=== PATIENT | male | born 1950 | race African-American/Black ===

== ENCOUNTER 2018-01-13 02:02 | Emergency (ER) | payer OTHER, MEDICAID ==
[~2018-01-13] VITALS: Ht 172.7 cm; Wt 86.0 kg
[2018-01-13] MEDS ORDERED: SODIUM CHLORIDE 0.9% 1,000 ML IV ONE ×2 (02:33→03:17)
[2018-01-13] MEDS ORDERED: ONDANSETRON HCL 4MG/2ML INJ IV STA (02:33)
[2018-01-13 02:54] LABS: BASOPHILS % 0.3 % (0.0-2.0); EOSINOPHILS % 11.4 % (0.0-5.0); HEMATOCRIT. 32.3 % (42.0-52.0); HEMOGLOBIN. 10.9 g/dL (14.0-18.0); LYMPHOCYTES % 30.3 % (20.0-50.0); MEAN CORPUSCULAR HEMOGLOBIN 31.1 pg (28.0-32.0); MEAN CORPUSCULAR VOLUME 91.7 fL (80.0-94.0); MEAN PLATELET VOLUME 7.5 fl (7.4-10.4); MONOCYTES % 10.3 % (2.0-8.0); NEUTROPHILS % 47.7 % (40.0-76.0); PLATELET 196 x1000/uL (130-400); RED BLOOD CELL COUNT 3.52 mill/uL (4.7-6.1); RED CELL DISTRIBUTION WIDTH 13.7 % (11.6-14.6)
[2018-01-13 03:05] LABS: CHLORIDE 105 mEq/L (98-107)
[2018-01-13 03:17] LABS: CREATINE KINASE 723 IU/L (39-308); ETHANOL BLOOD 77 mg/dL
[2018-01-13 04:47] LABS: CLARITY URINE CLEAR (CLEAR); COLOR URINE YELLOW (YELLOW); KETONES URINE NEGATIVE (NEGATIVE); LEUKOCYTE ESTERASE URINE NEGATIVE (NEGATIVE); NITRITE URINE NEGATIVE (NEGATIVE); OCCULT BLOOD URINE NEGATIVE (NEGATIVE); PROTEIN URINE NEGATIVE (NEGATIVE); SPECIFIC GRAVITY URINE 1.008 (1.005-1.030)
[2018-01-13 05:20] LABS: *AMPHETAMINES SCREEN URINE NEGATIVE (NEGATIVE); *BARBITURATES SCREEN URINE NEGATIVE (NEGATIVE); *BENZODIAZEPINES SCREEN URINE NEGATIVE (NEGATIVE); *COCAINE SCREEN URINE PRESUMTIVE POSITIVE (NEGATIVE); METHADONE URINE SCREEN NEGATIVE (NEGATIVE)
[2018-01-13 05:21] LABS: CANNABINOID URINE SCREEN NEGATIVE (NEGATIVE); OPIATES URINE SCREEN NEGATIVE (NEGATIVE); PHENCYCLIDINE URINE SCREEN NEGATIVE (NEGATIVE)
[2018-01-13 11:04] VITALS: BP 138/77
== END 2018-01-13 12:31 | disposition home or self-care (01) ==
LOC: ER 03:33
DX: T51.0X1A Toxic effect of ethanol, accidental (unintentional), initial encounter (principal); T42.6X1A Poisoning by other antiepileptic and sedative-hypnotic drugs, accidental (unintentional), initial encounter; E11.9 Type 2 diabetes mellitus without complications; I10 Essential (primary) hypertension; G93.40 Encephalopathy, unspecified; M62.82 Rhabdomyolysis; N28.9 Disorder of kidney and ureter, unspecified; E86.0 Dehydration; Y92.89 Other specified places as the place of occurrence of the external cause
CPT/HCPCS: 36415; 70450; 71045; 80053; 80305; 80307; 80329; 81003; 82550; 84443; 85025; 93005; 96361; 96374; 99285; G0482; J2405; J7030

== ENCOUNTER 2018-02-17 15:04 | Inpatient (IN) | payer OTHER, MEDICAID ==
[~2018-02-17] VITALS: Ht 182.9 cm; Wt 101.2 kg
[2018-02-17] MEDS ORDERED: METHYLPREDNISOLONE SOD SUCC 125 MG/2 ML VIAL IV STA (15:17)
[2018-02-17] MEDS: ALBUTEROL (0.083%) 2.5MG/3ML NEB HHN SCH (15:17)
[2018-02-17] MEDS ORDERED: IPRATROPIUM BROMIDE (0.02%) 0.5MG/2.5ML NEB HHN STA (15:17)
[2018-02-17] MEDS ORDERED: MAGNESIUM 2 G PREMIX 50 ML IV ONE (15:30)
[2018-02-17 16:29] LABS: BASOPHILS % 0.1 % (0.0-2.0); EOSINOPHILS % 7.3 % (0.0-5.0); HEMATOCRIT. 37.3 % (42.0-52.0); HEMOGLOBIN. 12.4 g/dL (14.0-18.0); LYMPHOCYTES % 15.2 % (20.0-50.0); MEAN CORPUSCULAR HEMOGLOBIN 30.4 pg (28.0-32.0); MEAN CORPUSCULAR VOLUME 91.6 fL (80.0-94.0); MEAN PLATELET VOLUME 7.9 fl (7.4-10.4); MONOCYTES % 8.6 % (2.0-8.0); NEUTROPHILS % 68.8 % (40.0-76.0); PLATELET 238 x1000/uL (130-400); RED BLOOD CELL COUNT 4.07 mill/uL (4.7-6.1); RED CELL DISTRIBUTION WIDTH 13.2 % (11.6-14.6)
[2018-02-17 16:34] LABS: CHLORIDE 95 mEq/L (98-107); INR 0.9; PROTHROMBIN TIME 9.4 sec (9.1-11.1)
[2018-02-17 16:38] LABS: ETHANOL BLOOD < 10 mg/dL
[2018-02-17] MEDS ORDERED: CEFTRIAXONE 1 G PREMIX 50 ML IV NR (17:00)
[2018-02-17] MEDS ORDERED: AZITHROMYCIN 500 MG in DEXT 5% WATER 250 ML IV NR (17:00)
[2018-02-17] MEDS ORDERED: SODIUM CHLORIDE 0.9% 1000ML BAG (SEPSIS BOLUS) IV ONE (17:00)
[2018-02-17] MEDS ORDERED: SODIUM CHLORIDE 0.9% IV SCH (17:00)
[2018-02-17 17:16] LABS: BG BASE EXCESS -0.3 mmol/L (-2.0-2.0); BG BILEVEL POS AIRWAY PRESSURE 15/5; BG CARBOXYHEMOGLOBIN 0.7 % (0.5-1.5); BG DEOXYHEMOGLOBIN 0.4 % (0.0-5.0); BG FRACTION INSPIRED OXYGEN 50; BG HCO3 ACT 27.1 mmol/L (22.0-26.0); BG METHEMOGLOBIN 0.4 % (0.0-1.5); BG OXYGEN SATURATION 99.6 % (92.0-98.5); BG OXYHEMOGLOBIN 98.5 % (94.0-97.0); BG PCO2 56.4 mmHg (35.0-45.0); BG PO2 254.5 mmHg (75.0-100.0); BG SAMPLE SITE RIGHT RADIAL; BG TOTAL HEMOGLOBIN 13.3 g/dL (12.0-18.0); BG VENT MODE MASK - BIPAP
[2018-02-17] MEDS ORDERED: ENOXAPARIN 40MG/0.4ML SYR SUBCUT SCH (17:30)
[2018-02-17] MEDS ORDERED: MAGNESIUM/ALUMINUM HYDROXIDE/SIMETHICONE 30ML UDC PO PRN (17:30)
[2018-02-17] MEDS ORDERED: ONDANSETRON HCL 4MG/2ML INJ IV PRN (17:30)
[2018-02-17] MEDS ORDERED: HYDROCODONE/ACETAMINOPHEN 5/325MG TABLET PO PRN (17:30)
[2018-02-17] MEDS ORDERED: IPRATROPIUM/ALBUTEROL 0.5-3(2.5)MG/3ML NEB INH PRN (17:30)
[2018-02-17] MEDS ORDERED: ACETAMINOPHEN 325MG TABLET PO PRN (17:30)
[2018-02-17] MEDS ORDERED: DOCUSATE SODIUM 100MG CAPSULE PO PRN (17:30)
[2018-02-17 20:00] LABS: CLARITY URINE CLEAR (CLEAR); COLOR URINE YELLOW (YELLOW); KETONES URINE NEGATIVE (NEGATIVE); LEUKOCYTE ESTERASE URINE NEGATIVE (NEGATIVE); NITRITE URINE NEGATIVE (NEGATIVE); OCCULT BLOOD URINE NEGATIVE (NEGATIVE); PROTEIN URINE NEGATIVE (NEGATIVE); SPECIFIC GRAVITY URINE 1.007 (1.005-1.030); UROBILINOGEN URINE 0.2 E.U./dL (0.2-1.0)
[2018-02-17 20:13] LABS: *AMPHETAMINES SCREEN URINE NEGATIVE (NEGATIVE); *BARBITURATES SCREEN URINE NEGATIVE (NEGATIVE); CANNABINOID URINE SCREEN NEGATIVE (NEGATIVE); METHADONE URINE SCREEN NEGATIVE (NEGATIVE); OPIATES URINE SCREEN NEGATIVE (NEGATIVE); PHENCYCLIDINE URINE SCREEN NEGATIVE (NEGATIVE)
[2018-02-17 20:14] LABS: *BENZODIAZEPINES SCREEN URINE NEGATIVE (NEGATIVE); *COCAINE SCREEN URINE NEGATIVE (NEGATIVE)
[2018-02-17 21:14] LABS: CHLORIDE 99 mEq/L (98-107)
[2018-02-17] MEDS: METHYLPREDNISOLONE SOD SUCC 40 MG/ML VIAL IV SCH (22:36)
[2018-02-17 23:51] LABS: CREATINE KINASE MB FRACTION 21.1 ng/mL (0.5-3.6)
[2018-02-18] VITALS (14 sets, daily range): BP systolic 144–177; BP diastolic 75–101
[2018-02-18] MEDS ORDERED: DEXTROSE 50% WATER 50ML SYRINGE IV PRN ×2 (00:15)
[2018-02-18] MEDS ORDERED: GABA800T97 MT (03:14)
[2018-02-18] MEDS ORDERED: AMIT10TA6 MT (03:17)
[2018-02-18] MEDS ORDERED: FAMO20TA8 MT (03:17)
[2018-02-18] MEDS: METHYLPREDNISOLONE SOD SUCC 40 MG/ML VIAL IV SCH ×4 (03:44→17:16)
[2018-02-18] MEDS ORDERED: LISI2.5T47 MT (03:51)
[2018-02-18] MEDS: CLONIDINE 0.1MG TABLET PO PRN ×2 (03:57→12:51)
[2018-02-18] MEDS: IPRATROPIUM/ALBUTEROL 0.5-3(2.5)MG/3ML NEB INH SCH ×2 (04:19→20:20)
[2018-02-18 06:39] LABS: BASOPHILS % 0.1 % (0.0-2.0); EOSINOPHILS % 0.9 % (0.0-5.0); HEMATOCRIT. 36.3 % (42.0-52.0); HEMOGLOBIN. 11.9 g/dL (14.0-18.0); LYMPHOCYTES % 10.4 % (20.0-50.0); MEAN CORPUSCULAR HEMOGLOBIN 29.9 pg (28.0-32.0); MEAN CORPUSCULAR VOLUME 91.6 fL (80.0-94.0); MEAN PLATELET VOLUME 8.2 fl (7.4-10.4); NEUTROPHILS % 86.6 % (40.0-76.0); PLATELET 208 x1000/uL (130-400); RED BLOOD CELL COUNT 3.96 mill/uL (4.7-6.1); RED CELL DISTRIBUTION WIDTH 13.1 % (11.6-14.6)
[2018-02-18 07:55] LABS: LDL CHOLESTEROL 99 mg/dL (5-100)
[2018-02-18 07:57] LABS: HDL CHOLESTEROL 68 mg/dL (40-59)
[2018-02-18 08:11] LABS: CREATINE KINASE 1309 IU/L (39-308)
[2018-02-18] MEDS: BLOOD SUGAR DIAGNOSTIC STRIP TEST SCH ×3 (08:15→17:17)
[2018-02-18] MEDS ORDERED: INSULIN LISPRO 100 UNITS/ML SUBCUT SCH (08:20)
[2018-02-18] MEDS ORDERED: BLOOD SUGAR DIAGNOSTIC STRIP TEST SCH (09:00)
[2018-02-18] MEDS ORDERED: ENOXAPARIN 30MG/0.3ML SYR SUBCUT SCH (09:00)
[2018-02-18] MEDS ORDERED: FOLIC ACID 1MG TABLET PO SCH (10:45)
[2018-02-18] MEDS ORDERED: THIAMINE HCL 100MG TABLET PO SCH (11:57)
[2018-02-18] MEDS ORDERED: MULTIVITAMINS,THER W-MINERALS TABLET PO SCH (12:00)
[2018-02-18] MEDS ORDERED: NICOTINE 7MG PATCH TD SCH (12:00)
[2018-02-18] MEDS: INSULIN LISPRO 100 UNITS/ML SUBCUT SCH ×2 (13:00→17:19)
[2018-02-18] MEDS ORDERED: CHLORDIAZEPOXIDE 25MG CAPSULE PO SCH (14:00)
[2018-02-18 15:03] LABS: CREATINE KINASE 1355 IU/L (39-308)
[2018-02-18] MEDS ORDERED: BENZONATATE 100MG CAPSULE PO PRN (16:45)
[2018-02-18] MEDS ORDERED: CEFTRIAXONE 1 G PREMIX 50 ML IV SCH ×2 (17:00→18:30)
[2018-02-18] MEDS ORDERED: MONTELUKAST SODIUM 10MG TABLET PO SCH (17:00)
[2018-02-18] MEDS ORDERED: AMLODIPINE 5MG TABLET PO SCH (21:00)
[2018-02-18] MEDS ORDERED: AZITHROMYCIN 500 MG TABLET PO SCH (21:00)
== END 2018-02-18 20:47 | disposition home or self-care (01) | DRG 189 ==
LOC: ER 16:03 → 5EST 17:04 → EDBEDREQSVC 17:18 → EDBEDREQ 17:18 → ENRESERV 23:11
PROVIDERS: ADMIT Internal Medicine; ATTEND Internal Medicine
PROC: 5A09357 Assistance with Respiratory Ventilation, Less than 24 Consecutive Hours, Continuous Positive Airway Pressure (ICD-10-PCS; principal; 2018-02-17)
DX: J96.01 Acute respiratory failure with hypoxia (principal); J44.1 Chronic obstructive pulmonary disease with (acute) exacerbation; E87.1 Hypo-osmolality and hyponatremia; M62.82 Rhabdomyolysis; N17.9 Acute kidney failure, unspecified; I10 Essential (primary) hypertension; F17.210 Nicotine dependence, cigarettes, uncomplicated; R00.0 Tachycardia, unspecified; F10.10 Alcohol abuse, uncomplicated; E87.8 Other disorders of electrolyte and fluid balance, not elsewhere classified; D64.9 Anemia, unspecified; E66.01 Morbid (severe) obesity due to excess calories; Z68.30 Body mass index [BMI] 30.0-30.9, adult; Z81.0 Family history of intellectual disabilities; Z82.49 Family history of ischemic heart disease and other diseases of the circulatory system; Z88.6 Allergy status to analgesic agent
CPT/HCPCS: 36415; 36600; 71045; 80048; 80061; 80305; 82375; 82550; 82553; 82805; 82962; 83036; 83605; 83735; 83880; 84443; 84484; 93005; 93970; 96365; 96367; 96375; 99291; G0482; J0456; J0696; J1650; J1815; J2920; J2930; J3475; J7060; J7611; J7620

== ENCOUNTER 2018-10-26 07:16 | Inpatient (IN) | payer MEDICARE, MEDICAID ==
[2018-10-26] VITALS (7 sets, daily range): BP systolic 120–183; BP diastolic 81–99
[~2018-10-26] VITALS: Ht 182.9 cm; Wt 108.9 kg
[~2018-10-26 07:16] MED LIST: AMIT10TA6 MT; FAMO20TA8 MT; GABA800T97 MT
[2018-10-26] MEDS ORDERED: METHYLPREDNISOLONE SOD SUCC 125 MG/2 ML VIAL IV STA (07:42)
[2018-10-26] MEDS ORDERED: ALBUTEROL (0.083%) 2.5MG/3ML NEB HHN STA (07:42)
[2018-10-26] MEDS ORDERED: IPRATROPIUM BROMIDE (0.02%) 0.5MG/2.5ML NEB HHN STA (07:42)
[2018-10-26 08:00] LABS: BASOPHILS % 0.3 % (0.0-2.0); EOSINOPHILS % 6.5 % (0.0-5.0); HEMOGLOBIN. 12.9 g/dL (14.0-18.0); MEAN CORPUSCULAR HEMOGLOBIN 31.4 pg (28.0-32.0); MEAN CORPUSCULAR VOLUME 92.4 fL (80.0-94.0); MEAN PLATELET VOLUME 7.5 fl (7.4-10.4); MONOCYTES % 6.8 % (2.0-8.0); NEUTROPHILS % 64.4 % (40.0-76.0); PLATELET 204 x1000/uL (130-400); RED BLOOD CELL COUNT 4.11 mill/uL (4.7-6.1); RED CELL DISTRIBUTION WIDTH 14.2 % (11.6-14.6)
[2018-10-26 08:08] LABS: CHLORIDE 101 mEq/L (98-107)
[2018-10-26] MEDS ORDERED: NITROGLYCERIN 0.4MG TABLET SL SL PRN (08:30)
[2018-10-26] MEDS ORDERED: ASPIRIN 81MG TABLET PO ONE (08:30)
[2018-10-26] MEDS ORDERED: ENOXAPARIN 100MG/ML SYR SUBCUT ONE (08:30)
[2018-10-26] MEDS ORDERED: DEXTROSE 50% WATER 50ML SYRINGE IV PRN (09:00)
[2018-10-26] MEDS ORDERED: CLONIDINE 0.1MG TABLET PO PRN (09:00)
[2018-10-26] MEDS ORDERED: LOSARTAN POTASSIUM 50 MG TABLET PO SCH (09:00)
[2018-10-26] MEDS ORDERED: ONDANSETRON HCL 4MG/2ML INJ IV PRN (09:00)
[2018-10-26] MEDS ORDERED: ASPIRIN 81MG TABLET PO SCH (09:00)
[2018-10-26 09:17] LABS: CLARITY URINE CLEAR (CLEAR); COLOR URINE YELLOW (YELLOW); KETONES URINE NEGATIVE (NEGATIVE); LEUKOCYTE ESTERASE URINE NEGATIVE (NEGATIVE); NITRITE URINE NEGATIVE (NEGATIVE); OCCULT BLOOD URINE 2+ (NEGATIVE); PROTEIN URINE TRACE (NEGATIVE); SPECIFIC GRAVITY URINE 1.011 (1.005-1.030); UROBILINOGEN URINE 0.2 E.U./dL (0.2-1.0)
[2018-10-26 09:30] LABS: *AMPHETAMINES SCREEN URINE NEGATIVE (NEGATIVE); *BARBITURATES SCREEN URINE NEGATIVE (NEGATIVE); *BENZODIAZEPINES SCREEN URINE NEGATIVE (NEGATIVE); *COCAINE SCREEN URINE PRESUMTIVE POSITIVE (NEGATIVE); METHADONE URINE SCREEN NEGATIVE (NEGATIVE)
[2018-10-26 09:31] LABS: CANNABINOID URINE SCREEN NEGATIVE (NEGATIVE); OPIATES URINE SCREEN NEGATIVE (NEGATIVE); PHENCYCLIDINE URINE SCREEN NEGATIVE (NEGATIVE)
[2018-10-26] MEDS: BLOOD SUGAR DIAGNOSTIC STRIP TEST SCH ×4 (12:00→20:20)
[2018-10-26] MEDS: IPRATROPIUM BROMIDE (0.02%) 0.5MG/2.5ML NEB HHN SCH ×3 (12:50→21:28)
[2018-10-26] MEDS: INSULIN LISPRO 100 UNITS/ML SUBCUT SCH ×3 (13:03→20:30)
[2018-10-26] MEDS: ASPIRIN 81MG TABLET PO SCH (13:10)
[2018-10-26] MEDS: ACETAMINOPHEN 325MG TABLET PO PRN ×2 (13:11→20:20)
[2018-10-26] MEDS: METHYLPREDNISOLONE SOD SUCC 40 MG/ML VIAL IV SCH ×2 (13:11→20:19)
[2018-10-26] MEDS: LOSARTAN POTASSIUM 50 MG TABLET PO SCH (13:11)
[2018-10-26] MEDS: KETOROLAC 30MG/ML VIAL IV PRN (17:45)
[2018-10-26] MEDS: GUAIFENESIN-DM 200MG-20MG/10ML UDC PO PRN (20:20)
[2018-10-26] MEDS ORDERED: ATORVASTATIN CALCIUM 20MG TABLET PO SCH (21:00)
[2018-10-26] MEDS: INSULIN GLARGINE UD 100 UNITS/ML SYR SUBCUT SCH (23:20)
[2018-10-27] VITALS: BP 143/84
[2018-10-27] MEDS: KETOROLAC 30MG/ML VIAL IV PRN (00:02)
[2018-10-27] MEDS: IPRATROPIUM BROMIDE (0.02%) 0.5MG/2.5ML NEB HHN SCH ×3 (00:34→08:38)
[2018-10-27 02:00] VITALS: BP 136/87
[2018-10-27] MEDS: METHYLPREDNISOLONE SOD SUCC 40 MG/ML VIAL IV SCH (03:14)
[2018-10-27] MEDS: GUAIFENESIN-DM 200MG-20MG/10ML UDC PO PRN ×2 (03:14→09:36)
[2018-10-27 04:00] VITALS: BP 132/96
[2018-10-27 06:00] VITALS: BP 133/48
[2018-10-27 08:00] VITALS: BP 157/99
[2018-10-27] MEDS: INSULIN LISPRO 100 UNITS/ML SUBCUT SCH (08:00)
[2018-10-27] MEDS: BLOOD SUGAR DIAGNOSTIC STRIP TEST SCH (08:10)
[2018-10-27 08:29] LABS: BASOPHILS % 0.1 % (0.0-2.0); EOSINOPHILS % 0.2 % (0.0-5.0); HEMATOCRIT. 37.7 % (42.0-52.0); HEMOGLOBIN. 12.7 g/dL (14.0-18.0); LYMPHOCYTES % 8.4 % (20.0-50.0); MEAN CORPUSCULAR HEMOGLOBIN 30.8 pg (28.0-32.0); MEAN CORPUSCULAR VOLUME 91.6 fL (80.0-94.0); MEAN PLATELET VOLUME 8.2 fl (7.4-10.4); NEUTROPHILS % 87.3 % (40.0-76.0); PLATELET 204 x1000/uL (130-400); RED BLOOD CELL COUNT 4.12 mill/uL (4.7-6.1); RED CELL DISTRIBUTION WIDTH 14.2 % (11.6-14.6)
[2018-10-27 08:41] LABS: CHLORIDE 99 mEq/L (98-107)
[2018-10-27] MEDS ORDERED: ENOXAPARIN 30MG/0.3ML SYR SUBCUT SCH (09:00)
[2018-10-27] MEDS: ASPIRIN 81MG TABLET PO SCH (09:36)
[2018-10-27] MEDS: LOSARTAN POTASSIUM 50 MG TABLET PO SCH (09:36)
[2018-10-27] MEDS: INSULIN GLARGINE UD 100 UNITS/ML SYR SUBCUT SCH (09:37)
[2018-10-27 10:00] VITALS: BP 139/64
== END 2018-10-27 11:20 | disposition left against medical advice (07) | DRG 280 ==
LOC: ER 07:16 → EDBEDREQTM 08:35 → EDBEDREQ 08:35 → EDBEDREQSVC 08:35 → ENRESERV 10:17 → 5EST 11:00
PROVIDERS: ADMIT Internal Medicine; ATTEND Internal Medicine
DX: I21.4 Non-ST elevation (NSTEMI) myocardial infarction (principal); J96.00 Acute respiratory failure, unspecified whether with hypoxia or hypercapnia; J44.1 Chronic obstructive pulmonary disease with (acute) exacerbation; I16.0 Hypertensive urgency; D64.9 Anemia, unspecified; E11.9 Type 2 diabetes mellitus without complications; E78.5 Hyperlipidemia, unspecified; F10.20 Alcohol dependence, uncomplicated; F14.90 Cocaine use, unspecified, uncomplicated; F17.210 Nicotine dependence, cigarettes, uncomplicated; Z53.21 Procedure and treatment not carried out due to patient leaving prior to being seen by health care provider; I10 Essential (primary) hypertension; Z82.49 Family history of ischemic heart disease and other diseases of the circulatory system; Z88.5 Allergy status to narcotic agent; Z79.899 Other long term (current) drug therapy; Z71.51 Drug abuse counseling and surveillance of drug abuser; Z71.6 Tobacco abuse counseling
CPT/HCPCS: 36415; 71045; 80048; 80061; 80305; 81003; 82962; 83880; 84439; 84443; 84484; 93005; 93306; 96374; 99291; J1650; J1815; J1885; J2920; J2930; J7611